=== PATIENT | male | born 1955 | race Caucasian/White ===

== ENCOUNTER 2023-12-19 13:33 | Inpatient (IN) | payer BC, OTHER ==
[~2023-12-19] VITALS: Ht 190.5 cm; Wt 104.3 kg
[2023-12-19] MEDS: IV NORMAL SALINE 1000 ML BAG IV ONE (13:51)
[2023-12-19 14:11] LABS: CALCIUM 8.7 mg/dL (8.5-10.1); CARBON DIOXIDE 27 mmol/L (21-32); CHLORIDE 103 mmol/L (98-107); CREATININE 1.3 mg/dL (0.6-1.3); GLUCOSE 120 mg/dL (74-106); POTASSIUM 3.6 mmol/L (3.5-5.1); SODIUM SERUM 139 mmol/L (136-145); UREA NITROGEN, BLOOD 19 mg/dL (7-18)
[2023-12-19 14:13] LABS: ETHANOL < 3 MG/DL (0-10)
[2023-12-19 14:17] LABS: BASOPHILS % (AUTO) 0.4 % (0.0-2.0); EOSINOPHILS # (AUTO) 0.1 K/uL (0.0-0.7); EOSINOPHILS % (AUTO) 1.9 % (0.0-7.0); HEMATOCRIT 46.4 % (36.7-47.1); HEMOGLOBIN 15.7 g/dL (12.5-16.3); LYMPHOCYTES # (AUTO) 2.4 K/uL (0.8-4.8); MEAN CORPUSCULAR HEMOGLOBIN 30.6 uug (23.8-33.4); MEAN CORPUSCULAR HGB CONC 34 g/dL (32.5-36.3); MEAN CORPUSCULAR VOLUME 90.2 fL (73.0-96.2); MONOCYTES # (AUTO) 0.2 K/uL (0.1-1.30); NEUTROPHILS # (AUTO) 2.9 K/uL (1.8-8.9); NEUTROPHILS % (AUTO) 50.7 % (38.5-71.5); PLATELET COUNT (AUTO) 231 K/uL (152-348); RED BLOOD CELL COUNT(AUTO) 5.15 MIL/uL (4.06-5.63); RED CELL DISTRIBUTION WIDTH 13.5 % (12.1-16.2); WHITE BLOOD COUNT (AUTO) 5.7 K/uL (3.6-10.2)
[2023-12-19 14:19] LABS: DIFFERENTIAL COMMENT 1
[2023-12-19 14:26] LABS: THYROID STIMULATING HORMONE 3.575 mIU/mL (0.358-3.740)
[2023-12-19 14:57] LABS: *AMPHETAMINE, URINE NEGATIVE (NEGATIVE); *BARBITURATE, URINE NEGATIVE (NEGATIVE); *BENZODIAZEPINE, URINE NEGATIVE (NEGATIVE); *CANNABINOID, URINE NEGATIVE (NEGATIVE); *COCCAINE, URINE NEGATIVE (NEGATIVE); *OPIATE, URINE NEGATIVE (NEGATIVE); *PHENCYCLIDINE SCREEN,URINE NEGATIVE (NEGATIVE); FENTANYL, URINE NEGATIVE (NEGATIVE)
[2023-12-19] MEDS ORDERED: ASPIRIN 325 MG TABLET ONE (15:03)
[2023-12-19] MEDS: ASPIRIN 81 MG TAB.CHEW PO ONE (15:07)
[2023-12-19] MEDS ORDERED: NITROGLYCERIN 0.4 MG/TAB BOTTLE SL PRN (18:00)
[2023-12-19] MEDS ORDERED: METOPROLOL TARTRATE 50 MG TABLET PO SCH (18:00)
[2023-12-19] MEDS ORDERED: ONDANSETRON 4 MG/2 ML VIAL IV PRN (18:00)
[2023-12-19] MEDS ORDERED: MORPHINE SULFATE 2 MG/1 ML DISP.SYRIN IV PRN (18:00)
[2023-12-19 18:23] VITALS: TEMP 98.1
[2023-12-19 19:00] VITALS: BP 110/67; TEMP 97.7; O2SAT 95
[2023-12-19] MEDS: METOPROLOL TARTRATE 25 MG TABLET PO SCH (19:09)
[2023-12-19] MEDS: MELATONIN 3 MG TABLET PO SCH (20:45)
[2023-12-20] VITALS: BP 111/58; TEMP 97.5; O2SAT 94
[2023-12-20] MEDS: IV 1/2NS 1000 ML 1,000 ML IV PRN (01:17)
[2023-12-20 07:06] VITALS: BP 131/80; TEMP 97; O2SAT 96
[2023-12-20 07:14] LABS: BASOPHILS % (AUTO) 0.5 % (0.0-2.0); EOSINOPHILS # (AUTO) 0.4 K/uL (0.0-0.7); EOSINOPHILS % (AUTO) 6.6 % (0.0-7.0); HEMATOCRIT 41.3 % (36.7-47.1); HEMOGLOBIN 14.2 g/dL (12.5-16.3); LYMPHOCYTES # (AUTO) 1.5 K/uL (0.8-4.8); MEAN CORPUSCULAR HEMOGLOBIN 31.1 uug (23.8-33.4); MEAN CORPUSCULAR HGB CONC 34 g/dL (32.5-36.3); MEAN CORPUSCULAR VOLUME 90.8 fL (73.0-96.2); MONOCYTES # (AUTO) 0.5 K/uL (0.1-1.30); MONOCYTES % (AUTO) 7.8 % (0.0-11.0); NEUTROPHILS # (AUTO) 3.7 K/uL (1.8-8.9); NEUTROPHILS % (AUTO) 61.1 % (38.5-71.5); PLATELET COUNT (AUTO) 174 K/uL (152-348); RED BLOOD CELL COUNT(AUTO) 4.55 MIL/uL (4.06-5.63); RED CELL DISTRIBUTION WIDTH 13.6 % (12.1-16.2); WHITE BLOOD COUNT (AUTO) 6.1 K/uL (3.6-10.2)
[2023-12-20 07:19] LABS: DIFFERENTIAL COMMENT 1
[2023-12-20 07:30] LABS: CALCIUM 8.4 mg/dL (8.5-10.1); CREATININE 1.1 mg/dL (0.6-1.3); MAGNESIUM 1.9 mg/dL (1.8-2.4); POTASSIUM 3.9 mmol/L (3.5-5.1)
[2023-12-20 07:34] VITALS: BP 155/83; TEMP 97.7; O2SAT 97
[2023-12-20] MEDS: ASPIRIN 81 MG TAB.CHEW PO SCH (08:18)
[2023-12-20] MEDS ORDERED: LISI1TAB32 PO (10:41)
[2023-12-20] MEDS ORDERED: TAMS-3 PO (10:41)
[2023-12-20 11:15] VITALS: BP 155/83; TEMP 98; O2SAT 97
== END 2023-12-20 12:25 | disposition home or self-care (01) | DRG 282 ==
LOC: ER 13:33 → TELE3 17:06
PROVIDERS: ADMIT Internal Medicine; ATTEND Internal Medicine
DX: I95.9 Hypotension, unspecified (principal); I21.A1 Myocardial infarction type 2; R55 Syncope and collapse; E78.5 Hyperlipidemia, unspecified
CPT/HCPCS: 36415; 70450; 71045; 83735; 84443; 84484; 85025; 93005; 93307; G0378; G0480